=== PATIENT | female | born 1975 | race Caucasian/White ===

== ENCOUNTER 2020-12-30 10:10 | Emergency (ER) | payer OTHER ==
[2020-12-30 11:53] LABS: HEMOGLOBIN 14.1 gm/dl (12.3-15.3); RED BLOOD COUNT 4.46 M/UL (4.00-5.10); WHITE BLOOD COUNT 10.7 K/UL (4.5-11.0)
[2020-12-30 12:37] LABS: BUN/CREATININE RATIO 13 (0-10)
[2020-12-30] MEDS ORDERED: CEPHALEXIN500 M1 PO (15:14)
== END 2020-12-30 11:20 | disposition home or self-care (01) ==
LOC: ER1 10:10
PROVIDERS: Emergency Medicine
DX: R20.2 Paresthesia of skin (principal); I10 Essential (primary) hypertension; F17.200 Nicotine dependence, unspecified, uncomplicated; N39.0 Urinary tract infection, site not specified
CPT/HCPCS: 70450; 71045; 80053; 80307; 81001; 82550; 82553; 83690; 83735; 83874; 84439; 84443; 84484; 84703; 85025; 93005; 96374; 99284; J0696